=== PATIENT | male | born 2000 | race Caucasian/White ===

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

== ENCOUNTER 2021-10-27 21:33 | Emergency (ER) | payer SELFPAY ==
[~2021-10-27] VITALS: Ht 182.8 cm; Wt 77.1 kg
[2021-10-27 21:44] VITALS: BP 153/87
[2021-10-27] MEDS ORDERED: Motrin,Rufen800 MG PO (22:45)
== END 2021-10-27 22:50 | disposition home or self-care (01) ==
LOC: ED 21:33
DX: S43.004A Unspecified dislocation of right shoulder joint, initial encounter (principal); W22.01XA Walked into wall, initial encounter; Y93.89 Activity, other specified; Y92.89 Other specified places as the place of occurrence of the external cause; Y99.8 Other external cause status